=== PATIENT | male | born 1945 | race Caucasian/White ===

== ENCOUNTER → 2016-07-22 | Outpatient (CLI) | payer BC ==
[~2016-07-22] MED LIST: CYAN100020 PO; GLC/500 PO
[2016-07-22 09:54] LABS: ALT/SGPT 27 U/L (12-78); BLOOD UREA NITROGEN 20 mg/dl (7-18); BUN/CREATININE RATIO 18.1 (10-20); CALCIUM 9.1 mg/dl (8.5-10.1); CARBON DIOXIDE 29 mmol/L (21-32); CHLORIDE 103 mmol/L (98-107); CHOLESTEROL 183 mg/dl (0-200); GLUCOSE 105 mg/dl (70-99); POTASSIUM 4.5 mmol/L (3.5-5.1); SODIUM 140 mmol/L (136-145)
[2016-07-22 10:04] LABS: ALB/GLOB RATIO 1.2 (0.9-2); ALKALINE PHOSPHATASE 46 U/L (45-117); AST/SGOT 15 U/L (15-37); CHOLESTEROL/HDL RATIO 3.4; HDL CHOLESTEROL 54 mg/dl; LDL CHOLESTEROL CALCULATED 108 mg/dl; TRIGLYCERIDES 103 mg/dl (0-150); VERY LOW DENSITY LIPOPROT CALC 21 mg/dl
[2016-07-22 10:20] LABS: URINE TOTAL PROTEIN < 5.0 mg/dl (0-11.9)
[2016-07-22 10:22] LABS: ESTIMATED AVERAGE GLUCOSE 128 mg/dl; HA1C FLAG Normal (Normal)
== END | disposition home or self-care (01) ==
LOC: C.LAB1850 06:57
PROVIDERS: ATTEND Internal Medicine Endocrinology, Diabetes & Metabolism
DX: E11.9 Type 2 diabetes mellitus without complications (principal)

== ENCOUNTER 2016-08-28 14:46 | Emergency (ER) | payer BC ==
[~2016-08-28] VITALS: Ht 175.3 cm; Wt 86.5 kg
[2016-08-28 14:53] VITALS: TEMP 36.7; Ht 175.3 cm; Wt 86.5 kg
[2016-08-28] MEDS ORDERED: LIDOCAINE/EPINEPH/TETRACAINE 1 EA SYR EXT STA (15:25)
[2016-08-28] MEDS ORDERED: SODIUM CHLORIDE 0.9% 1000ML 1,000 ML IV STA (15:25)
[2016-08-28 15:28] VITALS: O2SAT 99
--- NOTE | 2016-08-28 15:29 | EMERGENCY ROOM VISIT NOTE ---
History Report prepared by Gianfranco: Vincent Medel Under the Supervision of: Dr. Claude Rivera D.O. First contact with patient: 15:15 Chief Complaint: SYNCOPE Stated Complaint: SYNCOPE Nursing Triage Summary: Arrives ALS. A/O x 4. Pt reports helping neighbor with a project. Became diaphoretic. Went home got a drink water. Became nauseated, attempted to go to [place] had syncopial episode. Fell in angel striking top of head on molding. reports he was unresponsive for 2 minutes. Pt reports hearing ask if he was all right. PMH: DM/oral History of Present Illness The patient is a 70 year old male who presents to the Emergency Room via ELS with complaints of a syncopal episode that occurred prior to arrival today. He states that he was helping his neighbor with a project, and was holding a piece of plywood, and then started to warm and sweaty. The patient walked back across the street to his house, and began to feel nauseous. He drank lb belinda and ate a cracker, and then walked to go to the bathroom, but he passed out onto the floor for around 2 minutes. The patient woke up after the episode, and felt fine other than seeing blood on his hand and having some stinging from lacerations he suffered on his head from the fall. His blood pressure was normal (124/78) after the episode, and he walked without assistance to the ambulance. He denies any chest pain, shortness of breath, diarrhea, vomiting, leg pain, leg swelling, or recent illnesses. He took Metformin this morning for his diabetes. The patient notes no other medical problems. His tetanus shot is up to date. The patient drinks occasional alcohol, and he does not use any tobacco products. Source of History: patient, family Onset: Prior to arrival today Position: other (global - syncope) Symptom Intensity: lasted 2 minutes Timing: other (episode) Associated Symptoms: + diaphoresis, + nausea, No SOB, No chest pain, No diarrhea, No vomiting Note: Associated symptoms: [place] hot before syncopal episode. Lacerations on head from fall. Denies recent illnesses, leg swelling, leg pain. Review of Systems See HPI for pertinent positives & negatives. A total of 10 systems reviewed and were otherwise negative. Past Medical & Surgical Medical Problems: (1) Diabetes Surgical Problems: (1) History of shoulder surgery Family History No pertinent family history Social History Smoking Status: Never Smoker Smokeless Tobacco Use: No Alcohol Use: occasionally Marital Status: Housing Status: lives with family Occupation Status: retired Current/Historical Medications Scheduled Cyanocobalamin (Vitamin B12), 1,000 MCG PO DAILY Metformin Hcl (Glucophage), 1,000 MG PO BID Allergies Coded Allergies: No Known Allergies (Unverified , 01/30/12) Physical Exam Vital Signs Date Time Temp Pulse Resp B/P Pulse Ox O2 Delivery O2 Flow Rate FiO2 08/28/16 16:52 86 16 143/78 99 Room Air 08/28/16 15:28 99 Room Air 08/28/16 15:17 82 08/28/16 15:13 84 141/81 91 151/80 85 152/84 08/28/16 14:53 36.7 75 20 144/109 99 Room Air Physical Exam GENERAL: Patient is awake, alert, and in no acute distress. Patient is resting comfortably and showing no signs of anxiety EYES: The conjunctivae are clear. The pupils are round and reactive. EARS, NOSE, MOUTH AND THROAT: The nose is without any evidence of any deformity. Mucous membranes are moist tongue is midline NECK: The neck is nontender and supple. RESPIRATORY: Normal respiratory effort is noted there is no evidence of wheezing rhonchi or rales CARDIOVASCULAR: Regular rate and rhythm noted there no murmurs rubs or gallops normal S1 normal S2 GASTROINTESTINAL: The abdomen is soft. Bowel sounds are present in all quadrants. Abdomen is nontender BACK: No midline tenderness or or step-off noted range of motion in flexion extension as well as rotation no signs of muscle spasm noted MUSCULOSKELETAL/EXTREMITIES: There is no evidence of gross deformity full range of motion is noted in the hips and shoulders SKIN: There is no obvious evidence of any rash. There are no petechiae, pallor or cyanosis noted. Linear lacerations noted to forehead, no active bleeding noted. NEUROLOGIC: Patient is awake alert and oriented x3 strength is symmetric patellar reflexes are 2+ bilaterally Medical Decision & Procedures ER Provider Diagnostic Interpretation: Radiology results as stated below per my review and radiologist interpretation: HEAD CT NONCONTRAST CT DOSE: 1076.61 mGy.cm HISTORY: Mental status change EVALUATE ALTERED MENTAL STATUS/WEAKNESS TECHNIQUE: Multiaxial CT images of the head were performed without the use of intravenous contrast. Comparison: None. Findings: The paranasal sinuses and mastoid air cells are clear. The calvarium and skull base are intact. The ventricles and sulci are within normal limits. There is no mass, hematoma, midline shift, or acute infarct. Impression: No acute intracranial abnormality. Electronically signed by: Andrew Mendoza M.D. 08/28/2016 4:15 PM Dictated Date/Time: 08/28/2016 4:14 PM SINGLE VIEW CHEST CLINICAL HISTORY: Generalized weakness. Change in mental status. FINDINGS: An AP, portable, upright chest radiograph is compared to study dated 05/19/2013. The cardiomediastinal silhouette is unremarkable. There is mild elevation of the right hemidiaphragm. The lungs and pleural spaces are clear. No pneumothorax is seen. The bony thorax is grossly intact. IMPRESSION: No active disease in the chest. Electronically signed by: Jourdan Arzate M.D. 08/28/2016 3:39 PM Dictated Date/Time: 08/28/2016 3:[address] DOSE: HISTORY: Trauma. Pain. fall TECHNIQUE: Multiaxial CT images of the cervical spine were performed and reformatted in the sagittal and coronal plane without the use of contrast. COMPARISON: None. FINDINGS: No fractures. No subluxation. Prevertebral soft tissues and the C1-C2 interval are intact. No pneumothorax. Moderate degenerative disc change. No evidence for compression deformity. Prevertebral soft tissues are unremarkable. IMPRESSION: Degenerative change. No acute bony abnormality. Electronically signed by: Andrew Mendoza M.D. 08/28/2016 4:17 PM Dictated Date/Time: 08/28/2016 4:15 PM Laboratory Results 08/28/16 15:40 Red Blood Count 4.53, Mean Corpuscular Volume 92.3, Mean Corpuscular Hemoglobin 31.3, Mean Corpuscular Hemoglobin Concent 34.0, Mean Platelet Volume 8.9, Neutrophils (%) (Auto) 67.6, Lymphocytes (%) (Auto) 25.2, Monocytes (%) (Auto) 5.8, Eosinophils (%) (Auto) 1.0, Basophils (%) (Auto) 0.2, Neutrophils # (Auto) 6.64, Lymphocytes # (Auto) 2.47, Monocytes # (Auto) 0.57, Eosinophils # (Auto) 0.10, Basophils # (Auto) 0.02 08/28/16 15:40 Test 08/28/16 15:40 08/28/16 16:15 White Blood Count 9.82 K/uL (4.8-10.8) Red Blood Count 4.53 M/uL (4.7-6.1) Hemoglobin 14.2 g/dL (14.0-18.0) Hematocrit 41.8 % (42-52) Mean Corpuscular Volume 92.3 fL (80-100) Mean Corpuscular Hemoglobin 31.3 pg (25-34) Mean Corpuscular Hemoglobin Concent 34.0 g/dl (32-36) Platelet Count 225 K/uL (130-400) Mean Platelet Volume 8.9 fL (7.4-10.4) Neutrophils (%) (Auto) 67.6 % Lymphocytes (%) (Auto) 25.2 % Monocytes (%) (Auto) 5.8 % Eosinophils (%) (Auto) 1.0 % Basophils (%) (Auto) 0.2 % Neutrophils # (Auto) 6.64 K/uL (1.4-6.5) Lymphocytes # (Auto) 2.47 K/uL (1.2-3.4) Monocytes # (Auto) 0.57 K/uL (0.11-0.59) Eosinophils # (Auto) 0.10 K/uL (0-0.5) Basophils # (Auto) 0.02 K/uL (0-0.2) RDW Standard Deviation 46.9 fL (36.4-46.3) RDW Coefficient of Variation 13.9 % (11.5-14.5) Immature Granulocyte % (Auto) 0.2 % Immature Granulocyte # (Auto) 0.02 K/uL (0.00-0.02) Prothrombin Time 11.0 SECONDS (9.0-12.0) Prothromb Time International Ratio 1.0 (0.9-1.1) Activated Partial Thromboplast Time 22.2 SECONDS (21.0-31.0) Partial Thromboplastin Ratio 0.9 Anion Gap 7.0 mmol/L (3-11) Est Creatinine Clear Calc Drug Dose 58.4 ml/min Estimated GFR () 64.5 Estimated GFR (Non- 55.7 BUN/Creatinine Ratio 12.9 (10-20) Calcium Level 8.7 mg/dl (8.5-10.1) Magnesium Level 2.1 mg/dl (1.8-2.4) Total Bilirubin 0.4 mg/dl (0.2-1) Direct Bilirubin 0.1 mg/dl (0-0.2) Aspartate Amino Transf (AST/SGOT) 16 U/L (15-37) Alanine Aminotransferase (ALT/SGPT) 30 U/L (12-78) Alkaline Phosphatase 48 U/L (45-117) Total Creatine Kinase 109 U/L (39-308) Creatine Kinase MB 1.9 ng/ml (0.5-3.6) Creatine Kinase MB Ratio 1.7 (0-3.0) Troponin I < 0.015 ng/ml (0-0.045) Total Protein 7.0 gm/dl (6.4-8.2) Albumin 4.0 gm/dl (3.4-5.0) Thyroid Stimulating Hormone (TSH) 2.750 uIu/ml (0.300-4.500) Urine Color YELLOW Urine Appearance CLEAR (CLEAR) Urine pH 6.5 (4.5-7.5) Urine Specific [place] 1.021 (1.000-1.030) Urine Protein NEG (NEG) Urine Glucose (UA) NEG (NEG) Urine Ketones TRACE (NEG) Urine Occult Blood NEG (NEG) Urine Nitrite NEG (NEG) Urine Bilirubin NEG (NEG) Urine Urobilinogen NEG (NEG) Urine Leukocyte Esterase TRACE (NEG) Urine WBC (Auto) 1-5 /hpf (0-5) Urine RBC (Auto) 0-4 /hpf (0-4) Urine Hyaline Casts (Auto) 1-5 /lpf (0-5) Urine Epithelial Cells (Auto) 10-20 /lpf (0-5) Urine Bacteria (Auto) NEG (NEG) Laboratory results per my review. Medications Administered Medications (Trade) Dose Ordered Sig/Yeni Route Start Time Stop Time Status Last Admin Dose Admin Sodium Chloride (Nss 1000ml) 1,000 ml @ 999 mls/hr Q1H1M STAT IV 08/28/16 15:25 08/28/16 16:25 DC 08/28/16 15:43 999 MLS/HR Tetracaine/ Epinephrine/ Lidocaine (L.e.t. Gel 4%/ 1:100/0.5%) 1 ea UD STAT EXT 08/28/16 15:25 08/28/16 15:26 DC 08/28/16 15:43 1 EA Procedure Location: Forehead Total length: 2.5 cm Complexity: Low Verbal consent was obtained after the risks and benefits were explained, including but not limited to bleeding, scarring, infection, pain, and bone/joint /nerve damage. At this time, the risks of the procedure are less than the risks of NOT performing the procedure. A time out was taken and the correct patient and site identified. The skin was prepped with betadine. The target area was anesthetized with LET gel. Copious irrigation was performed using normal saline solution. The skin was re-prepped with betadine and a sterile field set. The wound was explored for foreign bodies and none found. Examination revealed no injury to deep structures such as tendons, bone, or significant blood vessels. Debridement was not performed. The wound edges were approximated using Dermabond Hemostasis and excellent approximation was achieved. Antibacterial ointment and a sterile dressing applied. Detailed wound care instructions and signs and symptoms of infection reviewed with the family. No complications and the patient tolerated the procedure well. ECG Indication: syncope Rate (beats per minute): 72 Rhythm: normal sinus Findings: no ectopy, other (no acute ST segment abnormalities) Change: no significant change (compared to 05/04/13) ED Course 1516: The patient was evaluated in room A2. A complete history and physical examination were performed. 1525: Ordered L.e.t. Gel 4%/1:100/0.5% 1 ea EXT, NSS 1000 ml @ 999 mls/hr IV. 1620: I reevaluated and performed a laceration repair on the patient. 1715: Upon reevaluation, the patient is resting comfortably. I discussed the results and treatment plan with him. He verbalized agreement of the treatment plan. He was discharged home. Medical Decision Prior records/ancillary studies reviewed. Triage Nursing notes reviewed. Additional history obtained from family. Differential diagnosis: Etiologies such as vasovagal event, infection, hypoglycemia, electrolyte abnormalities, cardiac sources, intracerebral event, toxicologic, neurologic, as well as others were entertained. The patient is a 70-year-old male who presented to the emergency department for an evaluation after having a syncopal event. The patient states he had a presyncopal symptoms which included a flushed feeling and then he had a syncopal episode. The patient had no postictal phase. He did not bite his tongue. There is no reported seizure activity but he did have a laceration to his forehead as well as other signs of trauma on his face and back of his head. The patient did not have any focal neurologic deficit. I discussed the patient' s laboratory and radiographic studies with him. He was treated with IV fluids in the emergency department. The laceration was repaired using let gel and wound glue. I discussed the patient's follow-up with him as well as some of the causes of syncope. He was encouraged to rest and avoid any strenuous activity. He was encouraged to continue to drink plenty clear liquids and follow-up with his family doctor soon as possible. He was also encouraged to discuss the possibility that he may require further studies such as echocardiogram and Holter monitor to further evaluate the cause of his passing out episode. He was also encouraged return to the emergency Department immediately if symptoms change worsen or the need arises. Impression Primary Impression: Syncope Additional Impressions: Head injury Forehead laceration Scribe Attestation The scribe's documentation has been prepared under my direction and personally reviewed by me in its entirety. I confirm that the note above accurately reflects all work, treatment, procedures, and medical decision making performed by me. Departure Information Dispostion Home / Self-Care Referrals Kumar Belle M.D. (PCP) Forms HOME CARE DOCUMENTATION FORM, IMPORTANT VISIT INFORMATION Patient Instructions ED Laceration Facial Skin Glue, My [facility], Syncope Additional Instructions Call your family in the morning to schedule a follow-up appointment. Rest and avoid any strenuous activity. Keep herself well-hydrated and drink plenty clear liquids. Discussed the possibility with your family doctor that you may require further studies such as echocardiogram or Holter monitor to further evaluate the cause of your passing out episode. Return to the emergency department immediately symptoms change worsen or the need arises. Problem Qualifiers Primary Impression: Syncope Syncope type: unspecified Qualified Codes: R55 - Syncope and collapse Additional Impressions: Head injury Encounter type: initial encounter Qualified Codes: S09.90XA - Unspecified injury of head, initial encounter Forehead laceration Encounter type: initial encounter Qualified Codes: S01.81XA - Laceration without foreign body of other part of head, initial encounter
[2016-08-28] MEDS ORDERED: GLC/500 PO (15:31)
[2016-08-28] MEDS ORDERED: CYAN100020 PO (15:31)
--- NOTE | 2016-08-28 15:42 | DIAGNOSTIC IMAGING REPORT ---
SINGLE VIEW CHEST CLINICAL HISTORY: Generalized weakness. Change in mental status. FINDINGS: An AP, portable, upright chest radiograph is compared to study dated 05/19/2013. The cardiomediastinal silhouette is unremarkable. There is mild elevation of the right hemidiaphragm. The lungs and pleural spaces are clear. No pneumothorax is seen. The bony thorax is grossly intact. IMPRESSION: No active disease in the chest. Electronically signed by: Jourdan Arzate M.D. 08/28/2016 3:39 PM Dictated Date/Time: 08/28/2016 3:39 PM
[2016-08-28 15:52] LABS: BASO % 0.2 %; BASO ABS # 0.02 K/uL (0-0.2); COMPLETE YES; HEMATOCRIT 41.8 % (42-52); IG% 0.2 %; LYMPH % 25.2 %; LYMPH ABS # 2.47 K/uL (1.2-3.4); MEAN CELL VOLUME 92.3 fL (80-100); MEAN CORPUSCULAR HEMOGLOBIN 31.3 pg (25-34); MEAN PLATELET VOLUME 8.9 fL (7.4-10.4); MONO % 5.8 %; NEUT % 67.6 %; PLATELET COUNT 225 K/uL (130-400); RED BLOOD COUNT 4.53 M/uL (4.7-6.1); WHITE BLOOD COUNT 9.82 K/uL (4.8-10.8)
[2016-08-28 16:03] LABS: PARTIAL THROMBOPLASTIN RATIO 0.9
[2016-08-28 16:11] LABS: ALT/SGPT 30 U/L (12-78); AST/SGOT 16 U/L (15-37); BLOOD UREA NITROGEN 17 mg/dl (7-18); BUN/CREATININE RATIO 12.9 (10-20); CALCIUM 8.7 mg/dl (8.5-10.1); CARBON DIOXIDE 29 mmol/L (21-32); CHLORIDE 106 mmol/L (98-107); GLUCOSE 139 mg/dl (70-99); MAGNESIUM 2.1 mg/dl (1.8-2.4); POTASSIUM 4.2 mmol/L (3.5-5.1); SODIUM 142 mmol/L (136-145)
--- NOTE | 2016-08-28 16:17 | DIAGNOSTIC IMAGING REPORT ---
HEAD CT NONCONTRAST CT DOSE: 1076.61 mGy.cm HISTORY: Mental status change EVALUATE ALTERED MENTAL STATUS/WEAKNESS TECHNIQUE: Multiaxial CT images of the head were performed without the use of intravenous contrast. Comparison: None. Findings: The paranasal sinuses and mastoid air cells are clear. The calvarium and skull base are intact. The ventricles and sulci are within normal limits. There is no mass, hematoma, midline shift, or acute infarct. Impression: No acute intracranial abnormality. Electronically signed by: Andrew Mendoza M.D. 08/28/2016 4:15 PM Dictated Date/Time: 08/28/2016 4:14 PM
--- NOTE | 2016-08-28 16:19 | DIAGNOSTIC IMAGING REPORT ---
CERVICAL SPINE CT CT DOSE: HISTORY: Trauma. Pain. fall TECHNIQUE: Multiaxial CT images of the cervical spine were performed and reformatted in the sagittal and coronal plane without the use of contrast. COMPARISON: None. FINDINGS: No fractures. No subluxation. Prevertebral soft tissues and the C1-C2 interval are intact. No pneumothorax. Moderate degenerative disc change. No evidence for compression deformity. Prevertebral soft tissues are unremarkable. IMPRESSION: Degenerative change. No acute bony abnormality. Electronically signed by: Andrew Mendoza M.D. 08/28/2016 4:17 PM Dictated Date/Time: 08/28/2016 4:15 PM
[2016-08-28 16:21] LABS: ALKALINE PHOSPHATASE 48 U/L (45-117); CKMB/CK RATIO 1.7 (0-3.0)
[2016-08-28 16:37] LABS: URINE APPEARANCE CLEAR (CLEAR); URINE BILIRUBIN NEG (NEG); URINE COLOR YELLOW; URINE NITRITE NEG (NEG); URINE PH 6.5 (4.5-7.5); URINE SPECIFIC GRAVITY 1.021 (1.000-1.030); UROBILINOGEN NEG (NEG)
[2016-08-28 16:40] LABS: MANUAL MICROSCOPIC REQUIRED? NO; REVIEW REQ? NO
[2016-08-28 17:50] VITALS: BP 128/85; PULSE 81; O2SAT 98
== END 2016-08-28 17:50 | disposition home or self-care (01) ==
LOC: EDBD 14:46 → C.EDA 14:48
DX: R55 Syncope and collapse (principal); S01.81XA Laceration without foreign body of other part of head, initial encounter; S09.90XA Unspecified injury of head, initial encounter; W19.XXXA Unspecified fall, initial encounter; E11.9 Type 2 diabetes mellitus without complications; Z98.890 Other specified postprocedural states; Z79.899 Other long term (current) drug therapy

== ENCOUNTER → 2016-12-13 | Outpatient (CLI) | payer BC ==
[2016-12-13 09:55] LABS: ESTIMATED AVERAGE GLUCOSE 126 mg/dl; HA1C FLAG Normal (Normal)
[2016-12-13 10:21] LABS: RATIO 7.5 mcg/mg (0-30.0); THYROID STIMULATING HORMONE 1.98 uIu/ml (0.300-4.500)
== END | disposition home or self-care (01) ==
LOC: C.LAB1850 07:05
PROVIDERS: ATTEND Physician Assistant
DX: Z00.00 Encounter for general adult medical examination without abnormal findings (principal); E11.9 Type 2 diabetes mellitus without complications